=== PATIENT | male | born 1970 | race African-American/Black ===

== ENCOUNTER 2019-01-06 10:44 | Inpatient (IN) | payer OTHER ==
[2019-01-06 11:25] VITALS: BMI 26.2
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
[2019-01-06] MEDS ORDERED: IBUPROFEN 400 MG TABLET (FP) PO PRN (12:06)
[2019-01-06] MEDS ORDERED: MAGNESIUM CITRATE 300 ML BOTTLE PO PRN (12:06)
[2019-01-06] MEDS ORDERED: MENTHOL/PHENOL 1 EACH UD MM PRN (12:06)
[2019-01-06] MEDS ORDERED: MAGNESIUM HYDROX 2400MG/30ML ORAL SUSPENSION 30 ML CUP PO PRN (12:06)
[2019-01-06] MEDS ORDERED: METHOCARBAMOL 500 MG TABLET PO PRN (12:06)
[2019-01-06] MEDS ORDERED: chlordiazePOXIDE HCL 25 MG CAPSULE PO PRN (12:06)
[2019-01-06] MEDS ORDERED: BISMUTH SUBSALICYLATE 262 MG/15 ML BTL PO PRN (12:06)
[2019-01-06] MEDS ORDERED: hydrOXYzine PAMOATE 25 MG CAPSULE (FP) PO PRN (12:06)
[2019-01-06] MEDS ORDERED: ACETAMINOPHEN 325 MG TABLET (FP) PO PRN ×2 (12:06)
[2019-01-06] MEDS ORDERED: MAG HYDROX/AL HYDROX/SIMETH 30 ML UNIT-DOSE CUP PO PRN (12:06)
[2019-01-06] MEDS: chlordiazePOXIDE HCL 25 MG CAPSULE PO SCH ×3 (13:17→22:34)
[2019-01-06 14:03] LABS: ALBUMIN 3.5 g/dl (3.4-5.0); BILIRUBIN,TOTAL 0.3 mg/dL (0.2-1); BLOOD UREA NITROGEN 16.9 mg/dL (7-18); CALCIUM 9.2 mg/dL (8.5-10.1); POTASSIUM 3.7 mmol/L (3.5-5.1); TOT PROT 6.7 g/dl (6.4-8.2)
[2019-01-06 14:21] LABS: HEMATOCRIT 43.1 % (35.4-49); HEMOGLOBIN 14.2 GM/dL (11.7-16.9); MCH 29.8 pg (25.7-33.7); MCHC 33.1 g/dl (32.0-35.9); MEAN CELL VOLUME 90.2 fl (80-96); MEAN PLT VOLUME 7.9 fl (7.5-11.1); PLATELET COUNT 296 K/MM3 (134-434); RBC 4.77 M/mm3 (4.00-5.60); RDW 13.2 % (11.9-15.9); WHITE BLOOD COUNT 4.1 K/mm3 (4.0-10.0)
[2019-01-06] MEDS: THIAMINE HCL 100 MG TABLET (FP) PO SCH (22:34)
[2019-01-07] MEDS: chlordiazePOXIDE HCL 25 MG CAPSULE PO SCH ×4 (06:51→22:16)
[2019-01-07] MEDS: NICOTINE 7 MG/24 HOURS TOPICAL PATCH TD SCH (10:29)
[2019-01-07] MEDS: PRENATAL VITAMINS W/ FOLIC ACID TABLET (FP) PO SCH (10:31)
--- NOTE | 2019-01-07 11:04 | PN ---
S CIWA - CIWA Score Nausea/Vomitin-No Nausea/No Vomiting Muscle Tremors: 3 Anxiety: 3 Agitation: 3 Paroxysmal Sweats: 3 Orientation: 0-Oriented Tacttile Disturbances: 0-None Auditory Disturbances: 0-None Visual Disturbances: 0-None Headache: 0-None Present CIWA-Ar Total Score: 12 BHS Progress Note (SOAP) Subjective: sweats agitation restless body aches Objective: 01/07/19 11:03 Vital Signs Temperature 97.9 F 01/07/19 06:00 Pulse Rate 76 01/07/19 06:00 Respiratory Rate 18 01/07/19 06:00 Blood Pressure 119/68 01/07/19 06:00 O2 Sat by Pulse Oximetry (%) Laboratory Tests 01/06/19 01/06/19 01/06/19 12:15 12:15 12:15 WBC 4.1 RBC 4.77 Hgb 14.2 Hct 43.1 MCV 90.2 MCH 29.8 MCHC 33.1 RDW 13.2 Plt Count 296 MPV 7.9 Sodium 140 Potassium 3.7 Chloride 105 Carbon Dioxide 30 Anion Gap 5 L BUN 16.9 Creatinine 1.0 Est GFR (CKD-EPI)AfAm 102.69 Est GFR (CKD-EPI)NonAf 88.61 Random Glucose 78 Calcium 9.2 Total Bilirubin 0.3 AST 20 ALT 26 Alkaline Phosphatase 93 Total Protein 6.7 Albumin 3.5 RPR Titer Nonreactive labs noted aaox3 ambulating no acute distress Assessment: 01/07/19 11:04 withdrawal sx Plan: continue detox increase fluids
[2019-01-07] MEDS: THIAMINE HCL 100 MG TABLET (FP) PO SCH (22:16)
[2019-01-08] MEDS: chlordiazePOXIDE HCL 25 MG CAPSULE PO SCH ×4 (07:17→22:21)
[2019-01-08] MEDS: PRENATAL VITAMINS W/ FOLIC ACID TABLET (FP) PO SCH (10:10)
[2019-01-08] MEDS: NICOTINE 7 MG/24 HOURS TOPICAL PATCH TD SCH (10:10)
--- NOTE | 2019-01-08 12:20 | PN ---
S CIWA - CIWA Score Nausea/Vomitin-No Nausea/No Vomiting Muscle Tremors: 2 Anxiety: 2 Agitation: 2 Paroxysmal Sweats: 2 Orientation: 0-Oriented Tacttile Disturbances: 0-None Auditory Disturbances: 0-None Visual Disturbances: 0-None Headache: 0-None Present CIWA-Ar Total Score: 8 BHS Progress Note (SOAP) Subjective: interrupted sleep body aches tired Objective: 01/08/19 12:18 Vital Signs Temperature 97.8 F 01/08/19 10:03 Pulse Rate 81 01/08/19 10:03 Respiratory Rate 18 01/08/19 10:03 Blood Pressure 112/68 01/08/19 10:03 O2 Sat by Pulse Oximetry (%) Laboratory Tests 01/06/19 01/06/19 01/06/19 12:15 12:15 12:15 WBC 4.1 RBC 4.77 Hgb 14.2 Hct 43.1 MCV 90.2 MCH 29.8 MCHC 33.1 RDW 13.2 Plt Count 296 MPV 7.9 Sodium 140 Potassium 3.7 Chloride 105 Carbon Dioxide 30 Anion Gap 5 L BUN 16.9 Creatinine 1.0 Est GFR (CKD-EPI)AfAm 102.69 Est GFR (CKD-EPI)NonAf 88.61 Random Glucose 78 Calcium 9.2 Total Bilirubin 0.3 AST 20 ALT 26 Alkaline Phosphatase 93 Total Protein 6.7 Albumin 3.5 RPR Titer Nonreactive labs noted aaox3 ambulating no acute distress Assessment: 01/08/19 12:18 mild withdrawals Plan: continue detox
[2019-01-08] MEDS: THIAMINE HCL 100 MG TABLET (FP) PO SCH (22:21)
[2019-01-09] MEDS ORDERED: chlordiazePOXIDE HCL 10 MG CAPSULE PO PRN
[2019-01-09] MEDS: chlordiazePOXIDE HCL 10 MG CAPSULE PO SCH ×4 (06:21→22:41)
[2019-01-09] MEDS: NICOTINE 7 MG/24 HOURS TOPICAL PATCH TD SCH (10:36)
[2019-01-09] MEDS: PRENATAL VITAMINS W/ FOLIC ACID TABLET (FP) PO SCH (10:36)
--- NOTE | 2019-01-09 11:11 | PN ---
S CIWA - CIWA Score Nausea/Vomitin-No Nausea/No Vomiting Muscle Tremors: 3 Anxiety: 1-Mildly Anxious Agitation: 1-Slight > Activity Paroxysmal Sweats: No Perspiration Orientation: 0-Oriented Tacttile Disturbances: 0-None Auditory Disturbances: 0-None Visual Disturbances: 0-None Headache: 0-None Present CIWA-Ar Total Score: 5 BHS Progress Note (SOAP) Subjective: sweats anxiety tired Objective: 01/09/19 11:11 Vital Signs Temperature 97.0 F L 01/09/19 09:58 Pulse Rate 77 01/09/19 09:58 Respiratory Rate 18 01/09/19 09:58 Blood Pressure 119/79 01/09/19 09:58 O2 Sat by Pulse Oximetry (%) aaox3 ambulating no acute distress Assessment: 01/09/19 11:11 mild withdrawals Plan: continue detox increase fluids
[2019-01-09] MEDS: THIAMINE HCL 100 MG TABLET (FP) PO SCH (22:38)
[2019-01-09] MEDS: MELATONIN 5 MG TABLETS PO PRN (22:41)
[2019-01-10] MEDS: chlordiazePOXIDE HCL 10 MG CAPSULE PO SCH ×2 (07:24→17:25)
[2019-01-10] MEDS: PRENATAL VITAMINS W/ FOLIC ACID TABLET (FP) PO SCH (09:57)
[2019-01-10] MEDS: NICOTINE 7 MG/24 HOURS TOPICAL PATCH TD SCH (09:57)
--- NOTE | 2019-01-10 13:34 | PN ---
S CIWA - CIWA Score Nausea/Vomitin-No Nausea/No Vomiting Muscle Tremors: 2 Anxiety: 0-No Anxiety, at Ease Agitation: 0-Normal Activity Paroxysmal Sweats: No Perspiration Orientation: 0-Oriented Tacttile Disturbances: 0-None Auditory Disturbances: 0-None Visual Disturbances: 0-None Headache: 0-None Present CIWA-Ar Total Score: 2 BHS Progress Note (SOAP) Subjective: small rash to upper lip Objective: 01/10/19 13:33 Vital Signs Temperature 97.5 F L 01/10/19 09:34 Pulse Rate 87 01/10/19 09:34 Respiratory Rate 20 01/10/19 09:34 Blood Pressure 125/95 01/10/19 09:34 O2 Sat by Pulse Oximetry (%) aaox3 ambulating no acute distress Assessment: 01/10/19 13:34 mild withdrawals Plan: hydrocortizone 1% daily d/c in am
[2019-01-10] MEDS ORDERED: HYDROCORTISONE 1% TOPICAL CREAM 30 GM TUBE TP SCH (14:05)
[2019-01-10] MEDS: MELATONIN 5 MG TABLETS PO PRN (21:42)
[2019-01-10] MEDS: THIAMINE HCL 100 MG TABLET (FP) PO SCH (21:42)
[2019-01-10 21:49] VITALS: TEMP 97.7
[2019-01-11] MEDS ORDERED: chlordiazePOXIDE HCL 10 MG CAPSULE PO ONE (05:00)
[2019-01-11 07:07] VITALS: BP 115/73; PULSE 79
--- NOTE | 2019-01-11 13:59 | DS ---
[facility] Detox Discharge Summary Admission Date: 01/06/19 - History Present History: Alcohol Dependence, Cocaine Dependence Additional Comments: Pt is medically cleared and discharge today. Pt completed the detox protocol. pt is encouraged to follow-up with [facility] outpatient program and also to follow-up with his PMD. Pt verbalized understanding. Pt is alert and oriented x3 and in no acute distress. Pertinent Past History: H/O HTN, alcohol and cocaine use disorder. - Physical Exam Results Vital Signs: Vital Signs Temperature 97.7 F 01/11/19 06:00 Pulse Rate 79 01/11/19 06:00 Respiratory Rate 18 01/11/19 06:30 Blood Pressure 115/73 01/11/19 06:00 O2 Sat by Pulse Oximetry (%) Vital Signs 01/11/19 01/11/19 06:00 06:30 Temperature 97.7 F Pulse Rate 79 Respiratory 18 18 Rate Blood Pressure 115/73 Laboratory Last Values WBC 4.1 K/mm3 (4.0-10.0) 01/06/19 12:15 RBC 4.77 M/mm3 (4.00-5.60) 01/06/19 12:15 Hgb 14.2 GM/dL (11.7-16.9) 01/06/19 12:15 Hct 43.1 % (35.4-49) 01/06/19 12:15 MCV 90.2 fl (80-96) 01/06/19 12:15 MCH 29.8 pg (25.7-33.7) 01/06/19 12:15 MCHC 33.1 g/dl (32.0-35.9) 01/06/19 12:15 RDW 13.2 % (11.9-15.9) 01/06/19 12:15 Plt Count 296 K/MM3 (134-434) 01/06/19 12:15 MPV 7.9 fl (7.5-11.1) 01/06/19 12:15 Sodium 140 mmol/L (136-145) 01/06/19 12:15 Potassium 3.7 mmol/L (3.5-5.1) 01/06/19 12:15 Chloride 105 mmol/L (98-107) 01/06/19 12:15 Carbon Dioxide 30 mmol/L (21-32) 01/06/19 12:15 Anion Gap 5 MMOL/L (8-16) L 01/06/19 12:15 BUN 16.9 mg/dL (7-18) 01/06/19 12:15 Creatinine 1.0 mg/dL (0.55-1.3) 01/06/19 12:15 Est GFR (CKD-EPI)AfAm 102.69 01/06/19 12:15 Est GFR (CKD-EPI)NonAf 88.61 01/06/19 12:15 Random Glucose 78 mg/dL (74-106) 01/06/19 12:15 Calcium 9.2 mg/dL (8.5-10.1) 01/06/19 12:15 Total Bilirubin 0.3 mg/dL (0.2-1) 01/06/19 12:15 AST 20 U/L (15-37) 01/06/19 12:15 ALT 26 U/L (13-61) 01/06/19 12:15 Alkaline Phosphatase 93 U/L (45-117) 01/06/19 12:15 Total Protein 6.7 g/dl (6.4-8.2) 01/06/19 12:15 Albumin 3.5 g/dl (3.4-5.0) 01/06/19 12:15 RPR Titer Nonreactive (NONREACTIVE) 01/06/19 12:15 Labs noted. Pertinent Admission Physical Exam Findings: withdrawal symptoms. - Treatment Hospital Course: Detox Protocol Followed, Detoxed Safely, Responded well, Discharged Condition Good - Medication Discharge Medications: Ambulatory Orders Lisinopril 10 mg PO DAILY 01/06/19 - Diagnosis (1) Hypertension Status: Chronic (2) Alcohol dependence Status: Acute Qualifiers: Substance use status: uncomplicated Qualified Code(s): F10.20 - Alcohol dependence, uncomplicated (3) Cocaine dependence Status: Chronic Qualifiers: Substance use status: uncomplicated Qualified Code(s): F14.20 - Cocaine dependence, uncomplicated (4) Nicotine dependence Status: Chronic Qualifiers: Nicotine product type: cigarettes (5) Syncope Status: Chronic - AMA Did Patient Leave Against Medical Advice: No
== END 2019-01-11 09:17 | disposition home or self-care (01) | DRG 774 ==
LOC: YASAS 10:44 → Y6N 12:22
PROVIDERS: ADMIT Allergy & Immunology; ATTEND Allergy & Immunology
PROC: HZ2ZZZZ Detoxification Services for Substance Abuse Treatment (ICD-10-PCS; principal; 2019-01-06)
DX: F10.230 Alcohol dependence with withdrawal, uncomplicated (principal); F14.20 Cocaine dependence, uncomplicated; F17.210 Nicotine dependence, cigarettes, uncomplicated; I10 Essential (primary) hypertension; Z91.018 Allergy to other foods
CPT/HCPCS: 36415; 80053; 85027; 86593

== ENCOUNTER 2023-05-04 11:23 | Inpatient (IN) | payer OTHER ==
[2023-05-04 11:48] VITALS: BMI 27.3
[2023-05-04] MEDS ORDERED: BENZOCAINE/MENTHOL (CHLORASEPTIC ) LOZENGE MM PRN (13:01)
[2023-05-04] MEDS ORDERED: NICOTINE POLACRILEX 2 MG GUM BUC PRN (13:01)
[2023-05-04] MEDS ORDERED: ONDANSETRON *ODT* 4 MG TABLET SL PRN (13:01)
[2023-05-04] MEDS ORDERED: BISMUTH SUBSALICYLATE 524 MG/30 ML PO PRN (13:01)
[2023-05-04] MEDS ORDERED: NALOXONE HCL 0.4 MG/ML VIAL IM PRN (13:01)
[2023-05-04] MEDS ORDERED: BENZONATATE 200 MG CAPSULE PO PRN (13:01)
[2023-05-04] MEDS ORDERED: IBUPROFEN 400 MG TABLET (FP) PO PRN (13:01)
[2023-05-04] MEDS ORDERED: POLYETHYLENE GLYCOL (HEALTHYLAX) 3350 17 GM PACKET PO PRN (13:01)
[2023-05-04] MEDS ORDERED: chlordiazePOXIDE HCL 25 MG CAPSULE PO PRN (13:01)
[2023-05-04] MEDS ORDERED: IBUPROFEN 600 MG TABLET (FP) PO PRN (13:01)
[2023-05-04] MEDS ORDERED: MAG HYDROX/AL HYDROX/SIMETH 30 ML UNIT-DOSE CUP PO PRN (13:01)
[2023-05-04] MEDS ORDERED: ACETAMINOPHEN 325 MG TABLET (FP) PO PRN (13:01)
[2023-05-04] MEDS ORDERED: NALOXONE HCL (KLOXXADO) 8 MG SPRAY NS PRN (13:01)
[2023-05-04] MEDS ORDERED: MAGNESIUM HYDROX 2400MG/30ML ORAL SUSPENSION 30 ML CUP PO PRN (13:01)
[2023-05-04] MEDS ORDERED: DICYCLOMINE HCL 10 MG CAPSULE PO PRN (13:01)
[2023-05-04] MEDS ORDERED: guaiFENesin 600 MG TABLET.ER (FP) PO PRN (13:01)
[2023-05-04] MEDS ORDERED: LOPERAMIDE HCL 2 MG CAPSULE PO PRN (13:01)
[2023-05-04] MEDS ORDERED: LISINOPRIL 10 MG TABLET ONE (13:28)
[2023-05-04] MEDS ORDERED: chlordiazePOXIDE HCL 25 MG CAPSULE ONE (13:28)
[2023-05-04] MEDS ORDERED: PRENATAL VITAMINS W/ FOLIC ACID TABLET (FP) PO ONE (13:28)
[2023-05-04] MEDS: chlordiazePOXIDE HCL 25 MG CAPSULE PO ONE (13:37)
[2023-05-04] MEDS: PRENATAL VITAMINS W/ FOLIC ACID TABLET (FP) PO SCH (13:37)
[2023-05-04] MEDS: LISINOPRIL 10 MG TABLET PO SCH (13:37)
[2023-05-04] MEDS: chlordiazePOXIDE HCL 25 MG CAPSULE PO SCH (17:37)
[2023-05-04] MEDS: MELATONIN 5 MG TABLETS PO SCH (22:19)
[2023-05-04] MEDS: THIAMINE HCL 100 MG TABLET (FP) PO SCH (22:19)
[2023-05-06] MEDS: chlordiazePOXIDE HCL 25 MG CAPSULE PO SCH (05:18)
[2023-05-07] MEDS ORDERED: chlordiazePOXIDE HCL 10 MG CAPSULE PO PRN
[2023-05-07] MEDS: chlordiazePOXIDE HCL 10 MG CAPSULE PO SCH (05:50)
[2023-05-08] MEDS: chlordiazePOXIDE HCL 10 MG CAPSULE PO SCH (05:55)
[2023-05-08] MEDS: METHOCARBAMOL 500 MG TABLET PO PRN (10:26)
[2023-05-08] MEDS: hydrOXYzine PAMOATE 25 MG CAPSULE (FP) PO PRN (10:26)
[2023-05-09] MEDS: chlordiazePOXIDE HCL 10 MG CAPSULE PO ONE (05:57)
[2023-05-09 06:51] VITALS: TEMP 97.7
[2023-05-09 09:26] VITALS: BP 103/71; PULSE 99; RESP 18
== END 2023-05-09 10:35 | disposition home or self-care (01) | DRG 774 ==
LOC: YASAS 11:23 → Y6N 13:38
PROVIDERS: ADMIT Allergy & Immunology; ATTEND Surgery
PROC: HZ2ZZZZ Detoxification Services for Substance Abuse Treatment (ICD-10-PCS; principal; 2023-05-04)
DX: F10.20 Alcohol dependence, uncomplicated (principal); F14.20 Cocaine dependence, uncomplicated; F17.210 Nicotine dependence, cigarettes, uncomplicated; G47.00 Insomnia, unspecified; I10 Essential (primary) hypertension; M54.50 Low back pain, unspecified; G89.29 Other chronic pain; Z28.310 Unvaccinated for COVID-19; Z28.9 Immunization not carried out for unspecified reason
CPT/HCPCS: 87635; 93005; 93010